=== PATIENT | female | born 1980 | race Caucasian/White ===

== ENCOUNTER 2017-05-13 04:11 | Emergency (ER) | payer SELFPAY ==
[~2017-05-13] VITALS: Ht 160 cm; Wt 67.0 kg
[~2017-05-13 04:11] MED LIST: MACROBID PO; PHEN-873 PO
[2017-05-13 04:20] VITALS: BP 116/69
[2017-05-13] MEDS ORDERED: TETanus/Pertussis (Acell)/Diphther VAC/PF (Tdap-Adult) 0.5ml syringe IMVAC ONE (04:35)
[2017-05-13] MEDS ORDERED: SULF1TAB49 PO (04:35)
[2017-05-13] MEDS ORDERED: CEPH-572 PO (04:35)
[2017-05-13] MEDS ORDERED: IBUP-1984 PO (04:35)
[2017-05-13] MEDS ORDERED: bacitracin ointment unit dose packet TP SCH (08:00)
== END 2017-05-13 05:07 | disposition home or self-care (01) ==
LOC: ER 04:12
DX: L03.113 Cellulitis of right upper limb (principal); L98.499 Non-pressure chronic ulcer of skin of other sites with unspecified severity; F12.10 Cannabis abuse, uncomplicated; Z79.899 Other long term (current) drug therapy
CPT/HCPCS: 90471; 90715; 99283

== ENCOUNTER 2017-09-09 13:00 | Emergency (ER) | payer MEDICAID, OTHER ==
[~2017-09-09] VITALS: Ht 160 cm; Wt 64.0 kg
[2017-09-09 13:28] VITALS: BP 119/79
[2017-09-09] MEDS ORDERED: DEC4T PO (14:11)
[2017-09-09] MEDS ORDERED: PENI500T2 PO (14:11)
== END 2017-09-09 14:30 | disposition home or self-care (01) ==
LOC: ER 13:00
DX: S02.5XXA Fracture of tooth (traumatic), initial encounter for closed fracture (principal); K04.7 Periapical abscess without sinus; K02.9 Dental caries, unspecified; F12.90 Cannabis use, unspecified, uncomplicated; Z79.899 Other long term (current) drug therapy; X58.XXXA Exposure to other specified factors, initial encounter; Y93.89 Activity, other specified; Y92.89 Other specified places as the place of occurrence of the external cause; Y99.8 Other external cause status
CPT/HCPCS: 99283

== ENCOUNTER 2019-10-13 14:21 | Emergency (ER) | payer MEDICAID, OTHER ==
[~2019-10-13] VITALS: Ht 162.6 cm; Wt 75.0 kg
[~2019-10-13 14:21] MED LIST changes: +DEC4T PO; +PHEN-786 PO; -PHEN-873 PO
[2019-10-13] MEDS ORDERED: acetaminophen 325mg tablet PO ONE (14:40)
[2019-10-13] MEDS ORDERED: acetaminophen 325mg tablet PO STA (15:09)
[2019-10-13] MEDS ORDERED: normal saline 1000ML IV soln IV ONE (15:10)
[2019-10-13] MEDS ORDERED: clindamycin 600mg/D5W 50ml 50 ML IV ONE (15:15)
[2019-10-13] MEDS ORDERED: iohexol 300mg/ml 100ml inj. ONE (15:51)
[2019-10-13 16:04] LABS: BASOPHILS # (AUTO) 0.1 X10'3 (0-0.2); MEAN PLATELET VOLUME 7.5 FL (7.4-10.4); MONOCYTES # (AUTO) 2.2 X10'3 (0-0.9); RED BLOOD COUNT 4.62 X10'6 (4.20-5.60)
[2019-10-13 16:05] LABS: BASOPHILS % (AUTO) 0.4 % (0-1); EOSINOPHILS % (AUTO) 0.2 % (0-6); HEMATOCRIT 44.1 % (35.0-45.0); HEMOGLOBIN 15.3 g/dl (12.0-16.0); LYMPHOCYTES % (AUTO) 4.4 % (21-51); MEAN CORPUSCULAR HGB CONC 34.6 g/dL (33.0-36.5); MEAN CORPUSCULAR VOLUME 95.6 FL (78-98); NEUTROPHILS # (AUTO) 18.6 X10'3 (1.8-7.7); PLATELET COUNT 272 X10'3 (140-440); RED CELL DISTRIBUTION WIDTH 13.4 % (11.5-14.5); WHITE BLOOD COUNT 21.8 X10'3 (4.5-11.0)
[2019-10-13 16:17] LABS: ALANINE AMINOTRANSFERASE 47 U/L (12-78); ALBUMIN 3.6 G/DL (3.4-5.0); ALBUMIN/GLOBULIN RATIO 0.8 (1.1-1.5); ALKALINE PHOSPHATASE 92 IU/L (46-116); ANION GAP 8 (8-16); ASPARTATE AMINO TRANSFERASE 44 U/L (10-37); BILIRUBIN,TOTAL 0.4 MG/DL (0.1-1.0); BLOOD UREA NITROGEN 4 MG/DL (7-18); BUN/CREATININE RATIO 6.1 (6.6-38.0); CALCIUM 8.9 MG/DL (8.5-10.1); CHLORIDE 98 MMOL/L (99-107); CREATININE 0.66 MG/DL (0.40-0.90); GLUCOSE 101 MG/DL (70-104); POTASSIUM 3.9 MMOL/L (3.5-5.1); SODIUM 135 MMOL/L (135-145); TOTAL CARBON DIOXIDE 29.2 MMOL/L (24-32); TOTAL PROTEIN 8.1 G/DL (6.4-8.2); eGFR > 90 ML/MIN
[2019-10-13 17:10] LABS: TOTAL CELLS COUNTED 100
[2019-10-13 17:12] LABS: PLATELET ESTIMATE NORMAL
[2019-10-13 17:18] LABS: URINE HCG NEGATIVE (NEG)
[2019-10-13 17:20] LABS: CLARITY,URINE SLIGHTLY CLOUDY (Clear); COLOR,URINE STRAW (Yellow); GLUCOSE, URINE NEGATIVE (Neg); KETONES,URINE NEGATIVE (Neg); LEUKOCYTE ESTERASE ,URINE NEGATIVE (Neg); NITRITES, URINE NEGATIVE (Neg); OCCULT BLOOD,URINE TRACE-LYSED (Neg); PROTEIN,URINE NEGATIVE (Neg); UROBILINOGEN,URINE 0.2 E.U/dL (0.2-1.0)
[2019-10-13 17:21] LABS: UA COLLECTION TYPE CLN CATCH MIDSTREAM
[2019-10-13 17:28] LABS: SQUAMOUS EPITHELIAL CELL,UR MANY /LPF (FEW)
[2019-10-13 17:30] LABS: BACTERIA,URINE 2+ /HPF (Neg)
[2019-10-13 17:31] LABS: TRANSITIONAL EPI CELLS,URINE FEW /HPF
[2019-10-13 17:32] LABS: WBC,URINE 0-4 /HPF (0-4)
[2019-10-13 17:35] LABS: HCG SERUM QL NEGATIVE
[2019-10-13] MEDS ORDERED: dexamethasone sod phosphate 10mg/ml inj IV STA (18:12)
[2019-10-13] MEDS ORDERED: CLIN300C70 PO (18:38)
[2019-10-13] MEDS ORDERED: PRED20TA PO (18:38)
[2019-10-13] MEDS ORDERED: ketorolac tromethamine 15mg/ml inj. IV ONE (18:40)
[2019-10-13 18:52] VITALS: BP 123/73
== END 2019-10-13 18:56 | disposition home or self-care (01) ==
LOC: ER 14:22
DX: J03.90 Acute tonsillitis, unspecified (principal); F41.9 Anxiety disorder, unspecified; F12.90 Cannabis use, unspecified, uncomplicated; Z72.89 Other problems related to lifestyle; Z79.899 Other long term (current) drug therapy
CPT/HCPCS: 36415; 70491; 80053; 81001; 81025; 83605; 84145; 84703; 85007; 85025; 87040; 96365; 96375; 99285; J1100; J1885; J7030; Q9967; J3490

== ENCOUNTER 2020-09-26 02:11 | Emergency (ER) | payer MEDICAID ==
[~2020-09-26] VITALS: Ht 160 cm; Wt 61.4 kg
--- NOTE | 2020-09-26 02:31 | NUR ---
PT CALLED FOR TRIAGE AND WAS SITTING INI THE LOBBY CHARGING HER PHONE AND USING HER PHONE. SHE STATES "YOU KNOW...I THINK I'LL JUST GO TO URGENT CARE WHEN THE OPEN" AND LEFT THE LOBBY. REDDENED RAISED NON DRAINING ABSCESS APPEARING AREA TO THE LEFT WRIST. CHARGE NURSE, RONEY, UPDATED.
[2020-09-26 02:33] VITALS: BP 135/85
[2020-09-26] MEDS ORDERED: TETanus/Pertussis (Acell)/Diphther VAC/PF (Tdap-Adult) 0.5ml syringe IMVAC ONE (03:15)
[2020-09-26] MEDS ORDERED: SULF1TAB49 PO (03:15)
--- NOTE | 2020-09-26 03:29 | NUR ---
RECORDS SHOW PT RECEIVED TETNUS BOOSTER 04/2017. PT UPDATED OF THIS.
== END 2020-09-26 03:35 | disposition home or self-care (01) ==
LOC: ER 02:15
DX: L02.414 Cutaneous abscess of left upper limb (principal); L03.114 Cellulitis of left upper limb; F41.9 Anxiety disorder, unspecified; F12.90 Cannabis use, unspecified, uncomplicated; Z87.440 Personal history of urinary (tract) infections; Z72.89 Other problems related to lifestyle; Z79.2 Long term (current) use of antibiotics; Z79.899 Other long term (current) drug therapy
CPT/HCPCS: 99283

== ENCOUNTER 2020-10-01 18:38 | Emergency (ER) | payer MEDICAID ==
[~2020-10-01] VITALS: Ht 160 cm; Wt 63.6 kg
[~2020-10-01 18:38] MED LIST changes: +SULF1TAB49 PO
[2020-10-01] MEDS ORDERED: bacitracin 15gm ointment TP ONE (19:40)
[2020-10-01] MEDS ORDERED: dexamethasone 4mg tablet PO ONE (19:40)
[2020-10-01] MEDS ORDERED: clindamycin 150mg capsule PO ONE (19:40)
[2020-10-01] MEDS ORDERED: famotidine 20mg tablet PO ONE (19:40)
[2020-10-01] MEDS ORDERED: CLIN150C2 PO (19:46)
[2020-10-01] MEDS ORDERED: PRED20TA PO (19:46)
[2020-10-01 20:45] VITALS: BP 112/88
--- NOTE | 2020-10-01 20:47 | NUR ---
patient given meds as ordered, wound was cultured, cleaned and bandaged per orders. instructed patient in wound care and she acknowledged understaning. patient also received rx and acknowledged understanding. patient dc home. vs wnl.
== END 2020-10-01 20:48 | disposition home or self-care (01) ==
LOC: ER 18:38
DX: L03.114 Cellulitis of left upper limb (principal); L02.414 Cutaneous abscess of left upper limb; F12.90 Cannabis use, unspecified, uncomplicated; Z72.89 Other problems related to lifestyle; Z86.14 Personal history of Methicillin resistant Staphylococcus aureus infection; Z87.440 Personal history of urinary (tract) infections; Z79.2 Long term (current) use of antibiotics; Z79.899 Other long term (current) drug therapy
CPT/HCPCS: 87070; 99284

== ENCOUNTER 2021-04-29 16:21 | Emergency (ER) | payer MEDICAID ==
[~2021-04-29] VITALS: Ht 160 cm; Wt 63.6 kg
[~2021-04-29 16:21] MED LIST changes: -SULF1TAB49 PO
[2021-04-29 16:34] VITALS: BP 132/82
[2021-04-29] MEDS ORDERED: DOXYCYCLINE 100MG CAPSULE PO STA (16:58)
[2021-04-29] MEDS ORDERED: AMOX-117 PO (17:00)
[2021-04-29] MEDS ORDERED: DOXY100C76 PO (17:00)
[2021-04-29] MEDS ORDERED: amox tr/potassium clavulanate 875/125mg TAB PO ONE (17:00)
== END 2021-04-29 17:30 | disposition home or self-care (01) ==
LOC: ER 16:21
DX: L03.116 Cellulitis of left lower limb (principal); F12.90 Cannabis use, unspecified, uncomplicated; Z87.440 Personal history of urinary (tract) infections; Z86.14 Personal history of Methicillin resistant Staphylococcus aureus infection; Z72.89 Other problems related to lifestyle; Z79.2 Long term (current) use of antibiotics; Z79.899 Other long term (current) drug therapy
CPT/HCPCS: 99283

== ENCOUNTER 2022-05-16 23:15 | Emergency (ER) | payer MEDICAID ==
[~2022-05-16] VITALS: Ht 160 cm; Wt 64.6 kg
[2022-05-16 23:35] VITALS: BP 125/93
[2022-05-17] MEDS ORDERED: amox tr/potassium clavulanate 875/125mg TAB PO ONE (04:10)
[2022-05-17] MEDS ORDERED: AMOX-580 PO (04:12)
[2022-05-18] MEDS ORDERED: SULF1TAB49 PO (19:23)
[2022-05-18] MEDS ORDERED: CEPH-585 PO (19:23)
== END 2022-05-17 04:19 | disposition home or self-care (01) ==
LOC: ER 23:15
DX: L03.211 Cellulitis of face (principal); F41.9 Anxiety disorder, unspecified; F12.10 Cannabis abuse, uncomplicated; Z86.14 Personal history of Methicillin resistant Staphylococcus aureus infection; Z87.448 Personal history of other diseases of urinary system; Z79.899 Other long term (current) drug therapy; Z79.1 Long term (current) use of non-steroidal anti-inflammatories (NSAID); Z79.2 Long term (current) use of antibiotics
CPT/HCPCS: 99283

== ENCOUNTER 2022-05-18 17:25 | Emergency (ER) | payer MEDICAID ==
[~2022-05-18] VITALS: Ht 160 cm; Wt 63.0 kg
[~2022-05-18 17:25] MED LIST changes: +AMOX-580 PO
[2022-05-18 17:32] VITALS: BP 130/84
--- NOTE | 2022-05-18 17:49 | NUR ---
Pt in FT3 c/o hives, and headache after taking her ABX prescription for cellulitis. Pt requesting a different ABX. Pt in agreement w/ POC. Pending provider orders.
[2022-05-18] MEDS ORDERED: CEPH-585 PO (19:23)
[2022-05-18] MEDS ORDERED: SULF1TAB49 PO (19:23)
== END 2022-05-18 19:56 | disposition home or self-care (01) ==
LOC: ER 17:26
DX: L03.211 Cellulitis of face (principal)
CPT/HCPCS: 99283

== ENCOUNTER 2022-10-16 19:08 | Emergency (ER) | payer MEDICAID ==
[~2022-10-16] VITALS: Ht 160 cm; Wt 65.0 kg
[~2022-10-16 19:08] MED LIST changes: -AMOX-580 PO; +CEPH-585 PO; +SULF1TAB49 PO
[2022-10-16 19:16] VITALS: BP 133/103; PULSE 86; RESP 16; TEMP 97.3; O2SAT 92
--- NOTE | 2022-10-16 20:05 | NUR ---
PT SEEN LEAVING THE ER
== END 2022-10-16 20:07 | disposition left against medical advice (07) ==
LOC: ER 19:10
DX: Z20.822 Contact with and (suspected) exposure to COVID-19 (principal); Z53.21 Procedure and treatment not carried out due to patient leaving prior to being seen by health care provider
CPT/HCPCS: 99281

== ENCOUNTER 2022-12-07 03:47 | Emergency (ER) | payer MEDICAID ==
[~2022-12-07] VITALS: Ht 160 cm; Wt 56.8 kg
[2022-12-07] MEDS ORDERED: diphenhydrAMINE 50 mg/ml inj IM ONE (04:40)
[2022-12-07] MEDS ORDERED: azithromycin 250mg tablet PO ONE (04:40)
[2022-12-07] MEDS ORDERED: penicillin G benzathine 1.2 million unit/2ml syringe IM ONE (04:40)
[2022-12-07 05:08] LABS: HCG SERUM QL NEGATIVE
[2022-12-07] MEDS ORDERED: DOXY-356 PO (05:50)
[2022-12-07] MEDS ORDERED: CefTRIAXone 500MG IM Kit w/LIDOcaine IM ONE (05:55)
[2022-12-07 06:04] VITALS: BP 109/68; PULSE 60; RESP 18; TEMP 99; O2SAT 96
== END 2022-12-07 06:19 | disposition home or self-care (01) ==
LOC: ER 03:48
DX: A53.9 Syphilis, unspecified (principal); F12.90 Cannabis use, unspecified, uncomplicated; Z88.1 Allergy status to other antibiotic agents; Z88.8 Allergy status to other drugs, medicaments and biological substances; Z79.2 Long term (current) use of antibiotics; Z79.899 Other long term (current) drug therapy
CPT/HCPCS: 36415; 84703; 86592; 87491; 87591; 96372; 99284; J0696; J1200; Q0112

== ENCOUNTER 2023-07-18 18:32 | Emergency (ER) | payer MEDICAID ==
[~2023-07-18] VITALS: Ht 160 cm; Wt 69.0 kg
[2023-07-18 18:43] VITALS: BP 112/72; PULSE 93; RESP 16; TEMP 97.8; O2SAT 96
== END 2023-07-18 20:03 | disposition left against medical advice (07) ==
LOC: ER 18:33
DX: A53.9 Syphilis, unspecified (principal); Z53.21 Procedure and treatment not carried out due to patient leaving prior to being seen by health care provider

== ENCOUNTER 2024-02-07 13:03 | Emergency (ER) | payer MEDICAID | END 2024-02-07 19:19 | disposition left against medical advice (07) | LOC: ER 13:06 | DX: R68.84 Jaw pain (principal); Z88.0 Allergy status to penicillin; Z88.8 Allergy status to other drugs, medicaments and biological substances; Z53.21 Procedure and treatment not carried out due to patient leaving prior to being seen by health care provider ==

== ENCOUNTER 2025-02-05 18:54 | Inpatient (IN) | payer MEDICAID ==
[~2025-02-05] VITALS: Ht 160 cm; Wt 63.5 kg
[2025-02-05] MEDS ORDERED: VANCOMYCIN 1GM 200ML H20 (PEG) 200 ML IV ONE (19:55)
--- NOTE | 2025-02-05 19:56 | ELECTROCARDIOGRAPH REPORT ---
[facility] Test Date: 2025-02-05 Test Time: 19:39:44 Pat Name: JANE CARRASCO Department: EMERGENCY ROOM Patient ID: [id number] Room: Gender: F Senior Research Manager: EAMON : 1980 Requested By: WENCESLAO SEGOVIA Order Number: [id number] Reading MD: Measurements Intervals [place] Rate: 101 P: 44 OK: 164 QRS: 45 QRSD: 95 T: 32 QT: 333 QTc: 432 Interpretive Statements Sinus tachycardia Ventricular premature complex RSR' in V1 or V2, right VCD or RVH Baseline wander in lead(s) V3,V5,V6 Please click the below link to view image of tracing.
--- NOTE | 2025-02-05 19:59 | Physician Documentation ---
History of Present Illness General Chief Complaint: Hand pain Stated Complaint: ABCESS HAND Time Seen by MD: 19:54 Primary Medical Doctor: none History of Present Illness Initial Comments This is a 44-year-old female who presents for evaluation of right hand pain and swelling. She states that she got a four days ago. Since then she had developed a wound on the radial aspect of her thenar eminence. She attempted to express pus herself. This is did not work and the pain increased, redness and swelling increase, and redness now ascending snf up the forearm. The particular palliating or aggravating factors. This never happened in the past. Reports fever and chills. Denies any other symptoms. Medication Reconciliation Allergies: Coded Allergies: amoxicillin (Verified Allergy, Unknown, rash, 02/05/25) clavulanic acid (Verified Allergy, Unknown, rash, 02/05/25) Miscellaneous Medications Home Med List (No Home Medications), (Reported) Discontinued Medications Cephalexin*Monohydrate* (Keflex*), 1 CAP PO QID Discontinued Reason: patient no longer taking Dexamethasone (Decadron), 8 MG PO ONCE Discontinued Reason: patient no longer taking Nitrofurantoin/Nitrofuran Mac* (Macrobid*), 100 MG PO BID Discontinued Reason: patient no longer taking Phenazopyridine Hcl (Pyridium tablet), 200 MG PO TIDWM Discontinued Reason: patient no longer taking Sulfamethoxazole/Trimethoprim (Bactrim Ds Tablet), 1 TAB PO Q12H Discontinued Reason: patient no longer taking Past Medical History Past Medical History: UTI, MRSA Abscess, Anxiety Past Surgical History: noncontributory Smoking: Cigarettes Alcohol Use: Heavy Drug Use: marijuana Lives with: Spouse Lives In: Home Review of Systems ROS 10 point review of systems was performed and unless noted above in HPI is negative for acute process/complaint. Physical Exam Physical Exam Vital Signs: Temperature: 101.0, Source: Temporal, Heart Rate: 109, Respiratory Rate: 15, BP: 121/79, Pulse Oximetry: 97, Weight: 63.500 Physical Exam GENERAL: Awake, alert, oriented, GCS 15, no apparent distress, non-toxic appearing, answers questions, follows commands appropriately. HEENT: Atraumatic, normocephalic, pupils equal, extraocular muscles intact, sclerae anicteric, mucus membranes moist, oropharynx is clear, no stridor. NECK: supple, full active range of motion, trachea midline, no thyromegaly, no lymphadenopathy, no JVD. CARDIOVASCULAR: Tachycardic and regular rate/rhythm, no murmurs/gallops/rubs, Pulses are 2+ in all extremities and symmetric. Capillary refill less than 2 seconds. PULMONARY: Nonlabored, good air movement ,no respiratory distress, speaking in full sentences, clear to auscultation bilaterally, no wheezing, no ronchi, no rales, no accessory muscle use. GASTROINTESTINAL: Soft, non-tender, non-distended, normal active bowel sounds, no organomegaly, no pulsatile masses, no CVA tenderness. NEUROLOGIC: Lucid with normal mental status. Normal facial symmetry. Moves all extremities symmetrically and with purpose. No truncal ataxia. Speech is fluid without evidence of dysarthria or aphasia, no focal deficits appreciated. MUSCULOSKELETAL: There is full range of motion of all extremities. There is no joint pain or joint swelling or joint erythema. There is no muscle pain or tenderness or swelling. EXTREMITIES: warm, well-perfused, no cyanosis, no clubbing, no edema, no acute deformities. Skin: Hot to touch dry, no rashes or lesions, no jaundice, no petechiae orpurpura. No ecchymosis. PSYCHIATRIC: Normal affect, normal insight, normal concentration. Focused exam: [, right upper extremity examined. There is significant swelling bolus palmar and dorsal aspect, there is an ulceration to the radial aspect of the thenar eminence, there is significant erythema involving dorsal aspect of the hand, wrist, and crossing into the forearm false dorsal and volar aspect a. Calor noted. No crepitus. No purulent discharge. Neurovascularly intact distal to the site of injury.] Progress Results/Orders Results/Orders Orders - ILYA SEGOVIA DO Culture Blood (02/05/25 19:47) Chest,Single View (02/05/25 19:47) Monitor (02/05/25 19:47) Oxygen (02/05/25 19:47) Saline Lock (02/05/25 19:47) Ct Upper Extremities (02/05/25 19:59) Completed Orders - ILYA SEGOVIA DO Cbc/Diff (02/05/25 19:47) Urinalysis, Cult If Indicated (02/05/25 19:47) Chest,Single View (02/05/25 19:47) Procalcitonin (02/05/25 19:47) BMP (02/05/25 19:47) Lacticsepsis (02/05/25 19:47) Electrocardiogram (02/05/25 19:54) ESR (02/05/25 19:54) Vancomycin 1gm 200ml H20 (Peg) (Vancomyc (02/05/25 19:55) Normal Saline 1000ml (0.9% Sodium Chlori (02/05/25 19:55) Hs Troponin I W Calculations (02/05/25 19:54) Cefepime 1gm In D5w 50ml (Cefepime 1gm/D (02/05/25 19:55) Vancomycin/Ns 1 Gm Add-[place] (Vancomyc (02/05/25 19:56) Ct Upper Extremities (02/05/25 19:59) Hydrocodone/Apap 5/325mg Tab (Rail[place] 5/32 (02/05/25 20:00) Ketorolac Trometh 30mg/Ml Vial (Toradol (02/05/25 20:00) CK (02/05/25 19:53) C-Reactive Protein (02/05/25 19:53) Hcg Serum Ql (02/05/25 20:27) Iohexol 300mg/Ml 100ml Inj. (Omnipaque-3 (02/05/25 20:42) Drug Screen, Urine (02/06/25 00:24) Medications Received in ER Medications (Trade) Dose Ordered Sig/Jayy Route PRN Reason Start Time Stop Time Status Last Admin Dose Admin (0.9% sodium chloride (NS) 1000ml IV soln) 1,000 ml ONCE ONCE IVB 02/05/25 19:55 02/05/25 19:56 DC 02/05/25 22:15 1,000 ML Cefepime/Dextrose 50 ml @ 100 mls/hr ONCE ONCE IV 02/05/25 19:55 02/05/25 20:24 DC 02/05/25 22:11 100 MLS/HR Vancomycin HCl 250 ml @ 166.236 mls/hr ONCE ONCE IV 02/05/25 19:56 02/05/25 21:25 DC 02/05/25 22:29 166.236 MLS/HR (Railroad 5/325mg tablet) 1 tab ONCE ONCE PO 02/05/25 20:00 02/05/25 20:01 DC 02/05/25 22:16 1 TAB (Toradol inj. 30mg/ml) 30 mg ONCE ONCE IV 02/05/25 20:00 02/05/25 20:01 DC 02/05/25 22:17 30 MG Vital Signs 02/05/25 02/05/25 02/05/25 02/05/25 19:33 22:16 22:17 22:42 Temp 101.0 100.0 Pulse 109 102 Resp 15 18 18 16 B/P (MAP) 121/79 112/69 (83) Pulse Ox 97 99 O2 Flow Rate 0 02/06/25 02/06/25 02/06/25 02/06/25 00:01 00:40 00:41 01:48 Temp 100.0 100.0 Pulse 100 104 95 Resp 15 18 16 B/P (MAP) 104/56 (72) 94/58 (70) Pulse Ox 99 95 98 97 O2 Delivery Room Air* O2 Flow Rate 0 0 0 FiO2 21 21 21 Laboratory Tests Test 02/05/25 19:53 02/05/25 20:17 02/06/25 00:02 White Blood Count 18.4 H Red Blood Count 4.54 Hemoglobin 15.2 Hematocrit 44.0 Mean Corpuscular Volume 97.0 Mean Corpuscular Hemoglobin 33.4 H Mean Corpuscular Hemoglobin Concent 34.4 Red Cell Distribution Width 13.5 Platelet Count 272 Mean Platelet Volume 7.4 Neutrophils (%) (Auto) 91.1 H Lymphocytes (%) (Auto) 2.7 L Monocytes (%) (Auto) 6.1 Eosinophils (%) (Auto) 0 Basophils (%) (Auto) 0.1 Neutrophils # (Auto) 16.7 H Lymphocytes # (Auto) 0.5 L Monocytes # (Auto) 1.1 H Eosinophils # (Auto) 0.0 Basophils # (Auto) 0.0 CBC Comment Erythrocyte Sedimentation Rate 13 Sodium Level 134 L Potassium Level 3.8 Chloride Level 99 Carbon Dioxide Level 26.5 Anion Gap 9 Blood Urea Nitrogen 4 L Creatinine 0.66 Estimated GFR/1.73 m2 > 90 BUN/Creatinine Ratio 6.1 L Glucose Level 110 H Lactic Acid Level 1.9 Calcium Level 8.9 Total Creatine Kinase 46 Troponin I High Sensitivity < 4 L Troponin I High Sens Percent Delta Troponin I Hi Sens Absolute Change C-Reactive Protein 11.61 H Albumin 3.4 Procalcitonin < 0.05 Chemistry Comments Human Chorionic Gonadotropin, Qual Negative Urine Specimen Description Cln catch midstream Urine Color Yellow Urine Clarity Clear Urine pH 7.0 Urine Specific Wilson <=1.005 Urine Protein Negative Urine Glucose (UA) Negative Urine Ketones Negative Urine Occult Blood Negative Urine Nitrite Negative Urine Bilirubin Negative Urine Urobilinogen 0.2 Urine Leukocyte Esterase Negative Urine Culture Indicated Not ind Volume Urine Centrifuged 10 ml Urine Comment Urine Opiates Screen Positive Urine Methadone Screen Negative Urine Fentanyl Screen Positive H Urine Barbiturates Screen Negative Urine Phencyclidine Screen Negative Urine Amphetamines Screen Positive Urine Benzodiazepines Screen Negative Urine Cocaine Screen Negative Urine Cannabinoids Screen Positive Drug Screen Comment Microbiology Date/Time Source Procedure Growth Status 02/05/25 20:17 Blood Arm Right Blood Culture - Preliminary NEGATIVE (LESS THAN 24 HOURS) Resulted Medical Decision Making Additional information obtaine: old records, family Findings Facility Status: ED Holds, [facility] process The plan was discussed with the patient, who demonstrates clear understanding of the plan and is in agreement with the plan unless otherwise noted in the chart. All questions have been answered, all concerns were addressed unless otherwise documented. I was available throughout their ED stay for frequent reassessment and questions. Differential Diagnoses (considered and possible or likely): [Cellulitis, abscess, osteomyelitis, necrotizing fasciitis, no evidence of neurovascular injury at this time.] ??Differential Diagnoses (considered and unlikely, not requiring evaluation currently): [See above. ] MDM Data Please see [facility] for the following: Independent Historians and external Records Review. Historian: [Patient] Independent Historians: ?[Family, record review] Medication Management: [Reviewed medication list] Social History and determinants: [Reviewed] Please see the body of the note for the following: Any independent interpretations of ECG, imaging studies. All vitals signs/haemodynamics, ordered tests were independently reviewed and interpreted by myself. Nursing triage complaint and vitals reviewed, additional nursing notes were reviewed as available and I agree unless otherwise noted or documented in contradiction in the chart Vital Signs: Independently reviewed Labs: Independently interpreted Imaging: Independently interpreted Old Medical Records: Independently reviewed, see [facility] for relevant summary and information Pulse Oximetry: [99%] interpreted as [normal on room air] by me [Chuck Boner: Tachycardic Rate, Regular rhythm, no ectopy, sinus tachycardia. reviewed and interpreted by me] Additionally notably showing: [Hemodynamics reviewed. The patient is febrile, tachycardic and congruent with a fever, no evidence of hypotension respiratory distress. Laboratory studies notable for leukocytosis of 18.4, 91% neutrophils. ESR is not elevated at 13. Metabolic panel is unremarkable. CRP is significantly elevated. Troponin is negative. Procalcitonin is normal. She is not . Urine drug screen is positive for fentanyl and cannabinoids and methamphetamines and opioids. This is concerning for polysubstance use. UA is nondiagnostic for UTI. CT shows soft tissue swelling without abscess.] Tests considered but not ordered include: [Not applicable] Social Determinants of Health Impact: Patient was evaluated in [facility] [place] to healthcare due to below par ratio of patient to medical providers. [] Comorbid Conditions Impacting Present Evaluation and Care/Treatment: [Polysubstance abuse including fentanyl methamphetamine abuse] Management Discussions with other Healthcare Providers: [Hospitalist regarding admission] Treatment and Disposition Medication Management (Given or considered): [Antibiotics]. See EMR for details Consideration for Hospitalization/Escalation/Deescalation of Care: Admission for observation is necessary for further management of her extensive hand cellulitis. ?ED Course:?[No clinical deterioration] ?Shared decision making:?[] Code status:?FULL Please see the full Electronic Medical Record for full details of nursing documentation, medications list, other records of complete past medical history and conditions, vital signs, laboratory studies, and any radiologic study interpretations by radiologists. Portions of this note were completed using Intralign dictation software and as a result there may exist minor errors in spelling. I have reviewed elements of past family and social history and agree as included in note. Differential Diagnosis See body of main note for differential diagnosis Departure Disposition: ADMITTED INPATIENT Admitted to Inpatient Unit: to hospitalist Impression: Primary Impression: Cellulitis, upper arm Additional Impressions: Sepsis Methamphetamine abuse Fentanyl dependence Polysubstance abuse Condition: Stable Referrals: NO PRIMARY CARE PROVIDER (PCP) Signature Scribe Signature: No scribe Attestation: The note accurately reflects work and decisions made by me.Ilya Segovia DO 02/05/25 19:59 ILYA SEGOVIA DO Feb 05, 2025 19:59
[2025-02-05 20:06] LABS: MEAN PLATELET VOLUME 7.4 FL (7.4-10.4); RED CELL DISTRIBUTION WIDTH 13.5 % (11.5-14.5)
[2025-02-05 20:26] LABS: CREATININE 0.66 MG/DL (0.40-0.90); TOTAL CARBON DIOXIDE 26.5 MMOL/L (24-32); eCRCL 91 ML/MIN; eGFR > 90 ML/MIN
[2025-02-05] MEDS ORDERED: iohexol 300mg/ml 100ml inj. ONE (20:42)
--- NOTE | 2025-02-05 20:51 | RADIOLOGY REPORT ---
CHEST RADIOGRAPH INDICATION: SEPSIS TECHNIQUE: Single frontal view of the chest was obtained COMPARISON: None FINDINGS: Lungs and pleural spaces are clear. Cardiac silhouette and fouzia are within normal limits. Bones and soft tissues demonstrate no significant abnormality. IMPRESSION: No acute disease.
[2025-02-05 20:56] LABS: HCG SERUM QL NEGATIVE
[2025-02-05] MEDS: cefepime 1GM in D5W 50mL 50 ML IV ONE (22:11)
[2025-02-05] MEDS: normal saline 1000ML IV soln IVB ONE (22:15)
[2025-02-05] MEDS: HYDROcodone/acetaminophen 5mg/325mg tablet PO ONE (22:16)
[2025-02-05] MEDS: ketorolac trometh 30MG/ML vial 30 MG/ML VIAL IV ONE (22:17)
[2025-02-05] MEDS: vancomycin/NS 1 GM ADD-VANTAGE 250 ML IV ONE (22:29)
[2025-02-06] MEDS ORDERED: NO HOME MEDS (00:02)
[2025-02-06 00:16] LABS: LEUKOCYTE ESTERASE ,URINE NEGATIVE (Neg); OCCULT BLOOD,URINE NEGATIVE (Neg)
[2025-02-06 00:21] LABS: UA COLLECTION TYPE CLN CATCH MIDSTREAM
[2025-02-06 00:28] LABS: NITRITES, URINE NEGATIVE (Neg)
[2025-02-06 01:27] LABS: URINE AMPHETAMINE SCREEN POSITIVE (Neg); URINE BARBITUATE SCREEN NEGATIVE (Neg); URINE BENZODIAZEPINES SCREEN NEGATIVE (Neg); URINE CANNABINOID SCREEN POSITIVE (Neg); URINE COCAINE SCREEN NEGATIVE (Neg); URINE METHADONE SCREEN NEGATIVE (Neg); URINE OPIATE SCREEN POSITIVE (Neg); URINE PHENCYCLIDINE SCREEN NEGATIVE (Neg)
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
[2025-02-06] MEDS ORDERED: potassium Cl 40MEQ/1/2NS 520ml 520 ML IV PRN (03:25)
[2025-02-06] MEDS ORDERED: magnesium Cl slow-release 64mg tablet PO PRN (03:25)
[2025-02-06] MEDS ORDERED: magnesium hydroxide 30ml (MOM) UD suspension PO PRN (03:25)
[2025-02-06] MEDS ORDERED: magnesium sulf-water 2g/50mL 50 ML IV PRN (03:25)
[2025-02-06] MEDS ORDERED: ondansetron/PF 4mg/2ml inj IV PRN (03:25)
[2025-02-06] MEDS ORDERED: potassium Cl 20 mEq SR tablet PO PRN (03:25)
[2025-02-06] MEDS ORDERED: mag hydrox/Alum hydrox/simeth 30ml oral suspension PO PRN (03:25)
[2025-02-06] MEDS ORDERED: magnesium sulf-water 4G/100mL 100 ML IV PRN (03:25)
[2025-02-06] MEDS: normal saline 1000ml 1,000 ML IV SCH (03:30)
--- NOTE | 2025-02-06 03:44 | HISTORY AND PHYSICAL-Residence ---
History & Physical Providers to Resident Creating Document: [facility] ORR RES ~ History of Present Illness Primary Medical Doctor: none Reason for Admit\Complaint: Right hand pain History of Present Illness 44-year-old female with no significant past medical history came to the ER with complaints of right hand pain. She has right hand swelling, erythema, warmth and pain for the past 4 days. She developed an abscess on the palmar side of thenar eminence and attempted to drain the pus herself 2 days ago. She states that she was able to remove small amount of pus. The swelling and pain has worsened and spread up to forearm. She endorses fever and chills today. She denies trauma or IV drug use. She smokes marijuana and meth every other day. She is not diabetic. She denies chest pain, palpitation, dizziness, shortness of breath, syncope, burning micturition, frequency, urgency, abdominal pain, nausea, vomiting. She has history of homelessness Her PCP is Dr Daley in [facility] She can ambulate independently Allergies: Coded Allergies: amoxicillin (Verified Allergy, Unknown, rash, 02/05/25) clavulanic acid (Verified Allergy, Unknown, rash, 02/05/25) Home Medications Home Medications Active Reported No Home Medications (Home Med List) Each Past Medical History Past Medical History No significant past medical history Past Surgical History Surgical History Comment No significant surgical history Past Social History Social History Comment She smokes less than a pack a day for the past 20 years She drinks 1/2 to 1 pint a day for the past 10 years She smokes marijuana every other day for the past 15 years She has history of homelessness Her PCP is Dr Daley in [facility] She can ambulate independently Smoking: Cigarettes Alcohol Use: Heavy Drug Use: Marijuana Lives with: Spouse Lives In: Home ROS ROS Constitutional: Reports fever, chills, No dizziness, weight gain or loss Eyes: No pain, erythema, discharge, blurring of vision ENT: No sore throat, epistaxis, tinnitus Cardiovascular: No chest pain, palpitations, syncope, lower extremity edema, paroxysmal nocturnal dyspnea Respiratory: No Shortness of breath and cough, No hemoptysis. Gastrointestinal: No Abdominal pain, vomiting,nausea,constipation,diarrhea. Normal appetite. No hematemesis or melena. Musculoskeletal: Reports swelling, redness, and pain in right upper extremity, No Swelling, pain in bilateral lower legs. Integumentary: No change in skin, hair, nails. No swelling, bruising, abrasions Neurologic: No weakness,No headache, neck pain, numbness or tingling of the extremities, Psychiatric: No delusions, depression, loss of interest in normal activity or change in sleep pattern, hallucinations, suicidal ideations Endocrine: No fatigue, no weakness. polydipsia, polyuria, change in appetite, heat or cold intolerance, sweating, dry skin Hematological: No bleeding, petechiae, bruising Allergies: No asthma or urticaria Exam Vitals: Vital Signs Date Time Temp Pulse Resp B/P (MAP) Pulse Ox O2 Delivery O2 Flow Rate FiO2 02/06/25 01:48 100.0 95 16 94/58 (70) 97 0 21 02/06/25 00:40 Room Air* General: Awake , alert, and oriented x4, resting comfortably in the bed, in no acute distress HEENT: Atraumatic, normocephalic, EOMI, anicteric sclera ; pink conjunctiva Neck: Trachea midline. Supple, full range of motion, no JVD Cardiac: Tachycardic, regular rhythm with no murmurs all over the precordium. Respiratory: Equal breath sounds bilaterally, no tachypnea, no wheezing ,rub or rales, Chest wall is symmetric and without deformity. Gastrointestinal: Abdomen symmetric, non-distended, soft, non-tender, normal bowel sounds x4 quadrant, normoactive, no hepatosplenomegaly Musculoskeletal: Erythema, warmth, swelling of right hand and forearm with 1x1 cm ulcer over palmar aspect on thenar eminence, No pedal edema, no cyanosis, no osler nodes, no janeway lesions, no splinter hemorrhages Neurological: Speech is clear, alert, and oriented x 4. No motor or sensory deficit, deep tendon reflexes normal, cerebellar intact. Cranial nerves II-XII intact. Skin: Warm and dry Diagnostic Data Last Recorded Lab Results: 02/05/25195202/05/251952 Advance Care Planning Advanced Care plannin - 30 Minutes (Full code) Additional Plan Septic shock, 2/2 right hand cellulitis SIRS criteria met Blood pressure is on the soft side WBC is elevated-18.4 neutrophilic predominance Procalcitonin and lactic acid are normal CRP is elevated-11.6 ESR is normal She denies IV drug use EKG shows sinus tachycardia with rate [address] shows diffuse soft tissue swelling throughout the forearm, wrist and hand with no focal fluid collection Plan: She received 2 boluses of NS in the ER On NS at 150 mL/hour On IV cefepime 1 g q.12h and IV vancomycin-day 1 Wound care consulted Follow up wound cultures and blood culture Follow up A1c Monitor vitals and continue telemetry monitoring Substance use disorder Alcohol use disorder Urine drug screen positive for amphetamines, cannabinoids, fentanyl, opioids Follow up ethyl alcohol Alcohol withdrawal protocol in place Started thiamine, folic acid and multivitamin director of convention services and substance use navigator consulted I spent a total of 18 minutes reviewing various resuscitative measures/ACP with the patient. The patient decided to be full code. Code status: Full code DVT prophylaxis: Lovenox subQ Pain management: Tylenol/[place] 5 mg/10 mg p.r.n. Diet/nutrition: Regular diet Prognosis: Guarded Disposition: Continue IV antibiotics, follow up wound cultures and blood culture, PT eval and DC plan Resident MD attestation: The patient note has been reviewed and supervised by senior residents PGY-2/ PGY-3. Patient was seen, examined and discussed with attending physician, Dr. Niko Orr MD Internal Medicine resident, PGY-1 Attending Physician Attestation Evaluation via HIPAA compliant A/V device. I discussed the case with the resident and I agree with the resident's documentation. 44-year-old woman with a history of alcohol use disorder now presenting with right hand cellulitis and possible deep tissue infection. The treatment plan includes: Broad spectrum antimicrobial therapy while awaiting the microbiology studies. MRI of the right hand. Hand Surgery consultation. Time spent 50 minutes. Date of Service: Feb 06, 2025 Billing Provider: NIKO HORN MD, PREETHI, RES Feb 06, 2025 03:44 NIKO HORN MD Feb 06, 2025 04:48
[2025-02-06] MEDS: normal saline 1000ML IV soln IVB ONE (03:56)
[2025-02-06] MEDS: HYDROcodone/acetaminophen 5mg/325mg tablet PO PRN (06:46)
[2025-02-06 07:15] VITALS: BP 119/78; PULSE 96; RESP 16; TEMP 98.4; O2SAT 95
[2025-02-06 07:46] LABS: APTT 32 SECONDS (22-32); INR 1.2 INR
[2025-02-06] MEDS: folic acid 1mg/0.2ml inj IV SCH (08:00)
[2025-02-06] MEDS: K and/or MAG REPLACEMENT MC SCH (08:00)
[2025-02-06 08:03] LABS: CREATININE 0.74 MG/DL (0.40-0.90); ETHANOL < 10 MG/DL (<10); PHOSPHORUS 1.9 MG/DL (2.3-4.5); PRO BRAIN NATRIURETIC PEPTIDE 388 PG/ML (0-125); TOTAL CARBON DIOXIDE 24.7 MMOL/L (24-32); eCRCL 81 ML/MIN; eGFR 86 ML/MIN
[2025-02-06] MEDS: thiamine 100mg/ml 2ml inj. IV SCH (09:12)
[2025-02-06] MEDS: multivitamins, therapeutics tablet PO SCH (09:13)
[2025-02-06] MEDS: lactobacillus rhamnosus 10,000 MMU CELLS/CAPSULE PO SCH (09:13)
[2025-02-06] MEDS: docusate sod 100mg capsule PO SCH (09:13)
[2025-02-06 10:00] VITALS: BP 123/72; PULSE 98; RESP 17; TEMP 99.4; O2SAT 97
[2025-02-06] MEDS: cefepime 1GM in D5W 50mL 50 ML IV SCH (10:44)
[2025-02-06] MEDS: VANCOmycin 1250MG/NS 250ml Bag 250 ML IV SCH (11:25)
[2025-02-06] MEDS ORDERED: vancomycin/NS 1 GM ADD-VANTAGE 250 ML IV SCH (13:00)
[2025-02-06 18:00] VITALS: BP 119/73; PULSE 92; RESP 16; TEMP 99.8; O2SAT 95
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
[2025-02-06] MEDS: enoxaparin 40mg/0.4ml syringe SQ SCH (19:37)
[2025-02-06] MEDS: HYDROcodone/acetaminophen 10/325mg tab PO PRN (19:43)
[2025-02-06 20:00] VITALS: RESP 18; O2SAT 95
[2025-02-06 22:00] VITALS: BP 103/67; PULSE 108; RESP 18; TEMP 97.3; O2SAT 95
[2025-02-07 06:00] VITALS: BP 129/72; PULSE 86; RESP 17; TEMP 97.3; O2SAT 96
[2025-02-07 06:20] LABS: MEAN PLATELET VOLUME 8.1 FL (7.4-10.4); RED CELL DISTRIBUTION WIDTH 13.8 % (11.5-14.5)
[2025-02-07 06:21] LABS: CHOL/HDL RATIO 2.6 (0.00-4.99); CREATININE 0.53 MG/DL (0.40-0.90); LDL CHOLESTEROL 65 MG/DL (50-100); TOTAL CARBON DIOXIDE 25.9 MMOL/L (24-32); eCRCL 113 ML/MIN; eGFR > 90 ML/MIN
[2025-02-07] MEDS: potassium Cl 20 mEq SR tablet PO PRN (07:26)
[2025-02-07 07:30] VITALS: RESP 18
[2025-02-07 10:00] VITALS: BP 127/78; PULSE 62; RESP 18; TEMP 97.9; O2SAT 97
--- NOTE | 2025-02-07 17:54 | DISCHARGE SUMMARY ---
Discharge Summary Providers to CC ~ Discharge Summary Admission Diagnosis: Right hand Cellulitis Hospital Course DATE OF ADMISSION: 02/06/2025 DATE OF DISCHARGE: 02/07/2025 the patient left AMA at 10:53 Discharge Diagnosis\\Comment: Cellulitis of right hand with secondary sepsis, methamphetamine use disorder/alcohol use disorder/ medical noncompliance Operations\\Procedures: None Consultants: None Complications: None Condition on DC: Stable Discharge Summary: The patient is admitted by resident physician USAMA Wayne , this is a supervision of NIKO Kumar MD with the following HPI:"44-year-old female with no significant past medical history came to the ER with complaints of right hand pain. She has right hand swelling, erythema, warmth and pain for the past 4 days. She developed an abscess on the palmar side of thenar eminence and attempted to drain the pus herself 2 days ago. She states that she was able to remove small amount of pus. The swelling and pain has worsened and spread up to forearm. She endorses fever and chills today. She denies trauma or IV drug use. She smokes marijuana and meth every other day. She is not diabetic. She denies chest pain, palpitation, dizziness, shortness of breath, syncope, burning micturition, frequency, urgency, abdominal pain, nausea, vomiting." I evaluated the patient later that morning on the found in the patient's bedside personal care items a small bottle of 99 prof root beer for which security was called and the root beer was taken. The patient has right hand had moderate to significant edema and erythema with a 1 x 1 cm ulcer on the palmar surface aspect of the thenar eminence. The patient has received IV cefepime and IV vancomycin as well as IV fluids and was on the alcohol withdrawal protocol. The following morning the patient [place] 14900- 10481. The patient did have a mild hypokalemia serum potassium of 3.4. I received a page at 10:55 that is the patient had left AMA at 10:53 a.m. and this was prior to seeing the patient and there was not enough time to speak to the patient in his attempts to convince her not to leave AMA. *Problems/Diagnosis: (1) Cellulitis of right hand Total Time Spent on D/C: Up to 30 Minutes Date of Service: Feb 07, 2025 Billing Provider: VIVIAN CHEN DO Common Visit Codes: NOT BILLABLE ( left AMA prior to being seen) VIVIAN CHEN DO Feb 07, 2025 17:44
[2025-02-07] MEDS ORDERED: VANCOMYCIN LEVEL IV ONE (22:30)
== END 2025-02-07 11:20 | disposition left against medical advice (07) | DRG 720 ==
LOC: ER 18:54 → ED HOLD 02-06 04:12 → EDBEDREQ 02-06 05:54 → EDBEDREQSVC 02-06 05:54 → ORTHO 4S 02-06 07:00
PROVIDERS: ADMIT Internal Medicine Critical Care Medicine; ATTEND Family Medicine
PROC: BP2J1ZZ Computerized Tomography (CT Scan) of Right Forearm using Low Osmolar Contrast (ICD-10-PCS; principal; 2025-02-05)
DX: A41.9 Sepsis, unspecified organism (principal); R65.21 Severe sepsis with septic shock; L03.113 Cellulitis of right upper limb; F11.20 Opioid dependence, uncomplicated; E87.6 Hypokalemia; F15.10 Other stimulant abuse, uncomplicated; Z53.29 Procedure and treatment not carried out because of patient's decision for other reasons; F41.9 Anxiety disorder, unspecified; F10.90 Alcohol use, unspecified, uncomplicated; Y90.9 Presence of alcohol in blood, level not specified; Z87.891 Personal history of nicotine dependence; Z91.199 Patient's noncompliance with other medical treatment and regimen due to unspecified reason
CPT/HCPCS: 36415; 71045; 73201; 80048; 80053; 80061; 80305; 80320; 81003; 82550; 83036; 83605; 83735; 83880; 84100; 84132; 84145; 84484; 84703; 85025; 85610; 85651; 85730; 86140; 87040; 87081; 93005; 96365; 99285; A6212; A6258; G0378; J0692; J1650; J1885; J3373; J3374; J3411; J3490; J7030; Q9967